=== PATIENT | male | born 1930 | race Caucasian/White ===

== ENCOUNTER 2017-07-25 20:34 | Emergency (ER) | payer MEDICARE, BC ==
[~2017-07-25] VITALS: Ht 175.3 cm; Wt 95.5 kg
[~2017-07-25 20:34] MED LIST: ASPIRIN 32325 MG/TA1 PO; BIOTIN1 MG PO; CORTEF 10MG TAB10 MG PO; CORTEF 20MG TAB20 MG PO; EPA1000 MG PO; FISH OIL 1000MG1 CAP PO; FLORINEF 00.1 MG/TAB PO; FLORINEF ACETA0.1 MG PO; HYDROCORTISONE20 MG PO; MULTIPLE VITAMI1 CAP PO; OMEPRAZOLE20 MG PO; TOPCARE ASPIRI325 MG PO; TYLENOL 650MG650 M2 PO; VITAMIN D5000 IU PO; VYTORIN 10 MG-41 TAB PO; [UNRECOGNIZED DRUG - OTHER] PO; vitorin
[2017-07-25 20:41] VITALS: TEMP 97.9
[2017-07-25] MEDS ORDERED: LIPITOR 40MG TA40 MG PO (21:29)
[2017-07-25 21:30] LABS: BASO % 0.5 % (0.0-2.0); EOS # 0.1 (0.0-0.7); EOS % 1.3 % (0-4.0); GRAN # 3.6 (1.4-6.5); GRAN % 59.3 % (42.2-75.2); HEMATOCRIT 41.1 % (42.0-52.0); HEMOGLOBIN 14.5 g/dl (13.5-18.0); LYMPH # 1.8 (1.2-3.4); LYMPH % 30.3 % (20.0-51.0); MEAN CELL VOLUME 91 fl (80.0-100.0); MEAN CORPUSCULAR HEMOGLOBIN 32 pg (27.0-31.0); MEAN CORPUSCULAR HGB CONC 35 g/dl (33.0-37.0); MEAN PLATELET VOLUME 9.6 fl (7.4-10.4); MONO # 0.5 (0.1-0.6); MONO % 8.3 % (1.7-9.3); PLATELET COUNT 269 K/mm3 (130-400)
[2017-07-25] MEDS ORDERED: BETIMOL 5 ML5 ML OS (21:32)
[2017-07-25] MEDS ORDERED: [UNRECOGNIZED DRUG - OTHER] OS (21:32)
[2017-07-25] MEDS ORDERED: BINOSTO PO (21:33)
[2017-07-25] MEDS ORDERED: FLOMAX 0.40.4 MG/CAP PO (21:33)
[2017-07-25 21:43] LABS: ADJUSTED CALCIUM 9.3 mg/dL (8.4-10.2); ALANINE AMINOTRANSFERASE 37 U/L (21-72); ALBUMIN 4.8 gm/dL (3.5-5.0); ALKALINE PHOSPHATASE 61 U/L (50-136); ANION GAP 13 mmol/L (7-16); BLOOD UREA NITROGEN 19 mg/dL (9-20); CALCIUM 9.9 mg/dL (8.4-10.2); CARBON DIOXIDE 24 mmol/L (22-30); CHLORIDE 103 mmol/L (98-107); CREATININE, serum 1.04 mg/dL (0.66-1.25); GLUCOSE 123 mg/dL (74-106); POTASSIUM 3.8 mmol/L (3.4-5.0); SODIUM 139 mmol/L (137-145); TOTAL PROTEIN 7.9 gm/dL (6.4-8.2)
[2017-07-25 21:46] LABS: PARTIAL THROMBOPLASTIN TIME 27.4 SECONDS (26.0-37.0); PROTHROMBIN TIME 11.1 SECONDS (9.7-12.8)
[2017-07-25 21:49] LABS: C-REACTIVE PROTEIN < 0.5 mg/dL (0.0-0.9)
[2017-07-25 22:13] LABS: ERYTHROCYTE SEDIMENTATION RATE 1 mm/hr (0-30)
[2017-07-25 22:49] VITALS: BP 133/73; PULSE 62
== END 2017-07-25 22:45 | disposition home or self-care (01) ==
LOC: COL.ER 20:34
PROVIDERS: Emergency Medicine
DX: G45.3 Amaurosis fugax (principal); I25.10 Atherosclerotic heart disease of native coronary artery without angina pectoris; E03.9 Hypothyroidism, unspecified; E78.5 Hyperlipidemia, unspecified; Z87.891 Personal history of nicotine dependence; Z98.41 Cataract extraction status, right eye; Z98.42 Cataract extraction status, left eye; Z79.82 Long term (current) use of aspirin

== ENCOUNTER → 2017-07-31 | Outpatient (CLI) | payer MEDICARE, BC ==
[~2017-07-31] MED LIST changes: +BETIMOL 5 ML5 ML OS; +BINOSTO PO; +FLOMAX 0.40.4 MG/CAP PO; +LIPITOR 40MG TA40 MG PO; +[UNRECOGNIZED DRUG - OTHER] OS
== END ==
LOC: COL.VAS 09:09
DX: G45.3 Amaurosis fugax (principal); I35.8 Other nonrheumatic aortic valve disorders; R07.9 Chest pain, unspecified

== ENCOUNTER 2021-09-29 10:43 | Emergency (ER) | payer MEDICARE, BC ==
[~2021-09-29] VITALS: Ht 175.3 cm; Wt 88.6 kg
[2021-09-29 11:28] LABS: BASO # 0.1 K/mm3 (0.0-0.2); BASO % 0.9 % (0.0-2.0); EOS # 0.2 K/mm3 (0.0-0.7); EOS % 2.7 % (0.0-4.0); GRAN # 3.3 K/mm3 (1.4-6.5); GRAN % 50.5 % (42.2-75.2); HEMATOCRIT 41.3 % (42.0-52.0); HEMOGLOBIN 14.3 g/dl (13.5-18.0); LYMPH # 2.5 K/mm3 (1.2-3.4); LYMPH % 37.4 % (20.0-51.0); MEAN CELL VOLUME 91 fl (80.0-100.0); MEAN CORPUSCULAR HEMOGLOBIN 32 pg (27-31); MEAN CORPUSCULAR HGB CONC 35 g/dl (33.0-37.0); MEAN PLATELET VOLUME 10.7 fl (7.4-10.4); MONO # 0.5 K/mm3 (0.1-0.6); MONO % 8.2 % (1.7-9.3); PLATELET COUNT 240 K/mm3 (130-400); RED BLOOD COUNT 4.52 M/mm3 (4.20-5.60); REDCELL DISTRIBUTION WIDTH-CV 12.5 % (11.5-14.5)
[2021-09-29 11:42] LABS: ALBUMIN 3.4 gm/dL (3.4-4.8); BILIRUBIN,TOTAL 0.6 mg/dL (0.2-1.2); CALCIUM 9.1 mg/dL (8.4-10.2); CREATININE, serum 1.04 mg/dL (0.72-1.25); POTASSIUM 3.6 mmol/L (3.5-4.5); TOTAL PROTEIN 6.6 gm/dL (6.2-8.1)
[2021-09-29] MEDS ORDERED: NORVASC 5MG5 MG/TAB PO (13:27)
[2021-09-29] MEDS ORDERED: PLAVIX 75MG TAB75 MG PO (13:27)
[2021-09-29 13:31] VITALS: BP 171/76; PULSE 54
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
== END 2021-09-29 13:40 | disposition home or self-care (01) ==
LOC: COL.ER 10:43
PROVIDERS: Personal Emergency Response Attendant
DX: I10 Essential (primary) hypertension (principal); G45.9 Transient cerebral ischemic attack, unspecified; I25.10 Atherosclerotic heart disease of native coronary artery without angina pectoris; E78.5 Hyperlipidemia, unspecified; E27.1 Primary adrenocortical insufficiency; Z95.1 Presence of aortocoronary bypass graft; Z79.82 Long term (current) use of aspirin; Z79.899 Other long term (current) drug therapy

== ENCOUNTER 2021-10-02 18:49 | Inpatient (IN) | payer MEDICARE, BC ==
[~2021-10-02] VITALS: Ht 175.3 cm; Wt 88.6 kg
[~2021-10-02 18:49] MED LIST changes: +NORVASC 5MG5 MG/TAB PO; +PLAVIX 75MG TAB75 MG PO
[2021-10-02 19:18] LABS: BASO % 0.4 % (0.0-2.0); EOS # 0.1 K/mm3 (0.0-0.7); EOS % 1.2 % (0.0-4.0); GRAN # 3.9 K/mm3 (1.4-6.5); HEMATOCRIT 44.4 % (42.0-52.0); HEMOGLOBIN 15.2 g/dl (13.5-18.0); LYMPH # 2.9 K/mm3 (1.2-3.4); LYMPH % 38.4 % (20.0-51.0); MEAN CELL VOLUME 92 fl (80.0-100.0); MEAN CORPUSCULAR HEMOGLOBIN 32 pg (27-31); MEAN CORPUSCULAR HGB CONC 34 g/dl (33.0-37.0); MEAN PLATELET VOLUME 10.4 fl (7.4-10.4); MONO # 0.6 K/mm3 (0.1-0.6); MONO % 7.7 % (1.7-9.3); PLATELET COUNT 273 K/mm3 (130-400); RED BLOOD COUNT 4.83 M/mm3 (4.20-5.60); REDCELL DISTRIBUTION WIDTH-CV 12.3 % (11.5-14.5)
[2021-10-02 19:40] LABS: ALBUMIN 3.6 gm/dL (3.4-4.8); BILIRUBIN,TOTAL 0.7 mg/dL (0.2-1.2); CALCIUM 9.4 mg/dL (8.4-10.2); CREATININE, serum 0.94 mg/dL (0.72-1.25); POTASSIUM 3.5 mmol/L (3.5-4.5); TOTAL PROTEIN 7.2 gm/dL (6.2-8.1)
[2021-10-02 19:46] LABS: TROPONIN-I 0.01 ng/mL (0.00-0.033)
[2021-10-02] MEDS ORDERED: VITAMIND3 5000 PO (20:27)
[2021-10-02] MEDS ORDERED: EPA FISH OIL1 SGL PO (20:28)
[2021-10-02] MEDS ORDERED: MELATONIN5 M1 SL (20:29)
[2021-10-02] MEDS ORDERED: ARICEPT 5MG PO (20:33)
[2021-10-02] MEDS ORDERED: DIFLUCAN200 MG PO (23:03)
[2021-10-02] MEDS ORDERED: NYSTATIN OR100 MU/ML PO (23:03)
[2021-10-02] MEDS ORDERED: ARICEPT10 MG PO (23:04)
[2021-10-02] MEDS ORDERED: ASPIRIN 32325 MG/TA1 PO (23:04)
[2021-10-02] MEDS ORDERED: CORTEF5 MG PO ×2 (23:06→23:07)
[2021-10-02] MEDS ORDERED: FLORINEF ACETA0.1 MG PO (23:07)
[2021-10-02] MEDS ORDERED: LIPITOR 40MG TA40 MG PO (23:08)
[2021-10-02] MEDS ORDERED: FOSAMAX 70MG TA70 MG PO (23:08)
[2021-10-02] MEDS ORDERED: XALATAN EYE DROPS OS (23:09)
[2021-10-02] MEDS ORDERED: PRILOSEC 20MG20 MG PO (23:09)
[2021-10-02] MEDS ORDERED: BIOTIN5000 MCG PO (23:13)
[2021-10-02] MEDS ORDERED: TYLENOL 325MG325 MG PO (23:14)
[2021-10-03] VITALS (9 sets, daily range): BP systolic 94–153; BP diastolic 47–92; PULSE 55–71; TEMP 97.3–98.5
--- NOTE | 2021-10-03 05:31 | NUR ---
PATIENT ADMITTED TO ROOM 311. PATIENT'S DAUGHTER WAS WITH HIM. PATIENT ORIENTED TO ROOM. PATIENTS DAUGHTER IS STACY AND SHE IS A BUSINESS PLANNER AT [employer]. HER SON IS A DOCTOR AT AN OUTPATIENT CLINIC AT AND HE DROVE IN FROM [place] LAST NIGHT. THE PTS GRANDDAUGHTER IS A PHYSICAL THERAPIST IN [place] AND IS ARRIVING TO OUR HOSPITAL THIS MORNING. EDUCATED FAMILY ON VISITORS POLICY AND THEY VERBALIZED UNDERSTANDING. PATIENT HAS BEEN CALM AND COOPERATIVE AND SLEEPING WELL SINCE ARRIVING TO THE FLOOR. NO NEW ISSUES NOTED BY THIS NURSE OR REPORTED BY PATIENT.
[2021-10-03 06:28] LABS: BASO % 0.4 % (0.0-2.0); EOS # 0.1 K/mm3 (0.0-0.7); EOS % 1.9 % (0.0-4.0); GRAN # 4.2 K/mm3 (1.4-6.5); GRAN % 60.7 % (42.2-75.2); HEMATOCRIT 39.6 % (42.0-52.0); HEMOGLOBIN 13.9 g/dl (13.5-18.0); LYMPH % 28.8 % (20.0-51.0); MEAN CELL VOLUME 90 fl (80.0-100.0); MEAN CORPUSCULAR HEMOGLOBIN 32 pg (27-31); MEAN CORPUSCULAR HGB CONC 35 g/dl (33.0-37.0); MEAN PLATELET VOLUME 10.4 fl (7.4-10.4); MONO # 0.5 K/mm3 (0.1-0.6); MONO % 7.9 % (1.7-9.3); PLATELET COUNT 236 K/mm3 (130-400); REDCELL DISTRIBUTION WIDTH-CV 12.3 % (11.5-14.5)
[2021-10-03 06:53] LABS: ALBUMIN 3.1 gm/dL (3.4-4.8); BILIRUBIN,TOTAL 0.7 mg/dL (0.2-1.2); CALCIUM 8.7 mg/dL (8.4-10.2); CHOLESTEROL RISK RATIO 12.8; CREATININE, serum 0.87 mg/dL (0.72-1.25); MAGNESIUM 1.8 mg/dL (1.6-2.6); PHOSPHOROUS 4.3 mg/dL (2.3-4.7); POTASSIUM 3.7 mmol/L (3.5-4.5); TOTAL PROTEIN 6.1 gm/dL (6.2-8.1)
--- NOTE | 2021-10-03 09:36 | NUR ---
PULLED PT MEDICATIONS FROM [facility]. PT HAS TWO ASPIRIN ORDERS AND CORTEX DOSES WERE DIFFERENT. CALLED PHARMACY, SPOKE TO ZAHRAA. STATES NOT TO GIVE 81MG AND GIVE 325MG ASPIRIN. THEN LOOKING FURTHER INTO MEDICATIONS ADVICED TO HOLD ALL MEDICATIONS THIS MORNING UNTIL A PHARMACIST CAN FURTHER LOOK AT THE MAR. MEDICATIONS WILL BE HELD UNTIL FURTHER NOTICE.
--- NOTE | 2021-10-03 10:14 | NUR ---
Initial visit; Patient very nice, stated that he appreciated Slab Lifting Supervisor coming in and asked that she keep him in her prayers. Slab Lifting Supervisor will do so.
--- NOTE | 2021-10-03 12:11 | NUR ---
PT OFF FLOOR TO MRI
--- NOTE | 2021-10-03 12:43 | NUR ---
Psychology Instructor and SW student attended clinical rounds and then met with patient to discuss discharge planning. Patient's son, Mauricio Osuna is at bedside. Patient lives in [facility] apartments with his , Miriam (ph#[phone]) and sees Dr. Polanco for primary care. Patient does not use any DME and reports independence with [facility]LS. Patient states they currently have no help in the home, but are considering it for Miriam. Patient has Advance Directives in EMR which designate Miriam as primary agent then his children Ying and Mauricio Cohn. Patient states he plans to return to [facility] at time of discharge. Ene with PT advised she is recommending outpatient PT for patient and that he is appropriate to return to [place]. RON contacted Irene at [facility] and faxed updates. Discharge Plan: [facility].
--- NOTE | 2021-10-03 13:03 | NUR ---
PT BACK TO FLOOR FROM MRI
--- NOTE | 2021-10-03 13:30 | NUR ---
PT UP IN BED EATING LUNCH. FAMILY STATES THAT PT WAS HAVING NUMBNESS IN LEFT ARM. PT STARTED TO SLUR SPEECH. WAS UNABLE TO LIFT ARM OR LEGS. PINKY WAS AT NURSING STATION, CALLED HER IN TO SEE PT. SHE CALLED DR. MONROE IN. STROKE TEAM WAS CONSULTED AND STAT HEAD CT WAS ORDERED.
--- NOTE | 2021-10-03 14:45 | NUR ---
TRANSPORTED PT TO CT VIA BED FOR STAT CT. THEN OT RETURNED TO ROOM. CALL LIGHT IS WITHIN REACH.
--- NOTE | 2021-10-03 17:30 | NUR ---
SPEECH THERAPY ASSESSMENT IS COMPLETE STATES THAT HE DOES VERY WELL AND CAN HAVE A REGULAR DIET. ORDER FOR REGULAR DIET WAS PUT IN. KITCHEN WAS CALLED TO GET DINNER TRAY.
--- NOTE | 2021-10-03 19:28 | NUR ---
PT LAYING IN BED WITH FAMILY AT BEDSIDE. PT STATES THAT HE IS NOT HAVING ANY PAIN AT THE MOMENT. STATES THAT HE IS JUST "WAITING FOR HIS MRI." NO OTHER NEEDS AT THIS TIME. CALL LIGHT IS WITHIN REACH.
--- NOTE | 2021-10-03 23:39 | NUR ---
Call placed to Mirta MENDOZA re: telemetry running multifocal PACs, couplets and triplets- NON: EKG, draw all am labs now, Potassium level, Magnesium level, patient is resting quietly w/o s/s of distress.
[2021-10-03 23:58] LABS: BASO # 0.1 K/mm3 (0.0-0.2); BASO % 0.7 % (0.0-2.0); EOS # 0.1 K/mm3 (0.0-0.7); EOS % 1.2 % (0.0-4.0); GRAN # 4.3 K/mm3 (1.4-6.5); GRAN % 63.3 % (42.2-75.2); HEMATOCRIT 38.7 % (42.0-52.0); HEMOGLOBIN 13.4 g/dl (13.5-18.0); LYMPH # 1.7 K/mm3 (1.2-3.4); LYMPH % 25.3 % (20.0-51.0); MEAN CELL VOLUME 90 fl (80.0-100.0); MEAN CORPUSCULAR HEMOGLOBIN 31 pg (27-31); MEAN CORPUSCULAR HGB CONC 35 g/dl (33.0-37.0); MONO # 0.6 K/mm3 (0.1-0.6); MONO % 9.2 % (1.7-9.3); PLATELET COUNT 234 K/mm3 (130-400); RED BLOOD COUNT 4.28 M/mm3 (4.20-5.60); REDCELL DISTRIBUTION WIDTH-CV 12.5 % (11.5-14.5)
[2021-10-04 00:15] LABS: CALCIUM 8.7 mg/dL (8.4-10.2); CREATININE, serum 0.97 mg/dL (0.72-1.25); MAGNESIUM 1.8 mg/dL (1.6-2.6); POTASSIUM 3.7 mmol/L (3.5-4.5)
--- NOTE | 2021-10-04 01:36 | NUR ---
Updated patient on lab results, EKG results and new orders for medications, verbalized understanding, denies feeling bad, VS stable, will continue to monitor.
[2021-10-04 03:17] VITALS: BP 117/69; PULSE 65; TEMP 98.2
[2021-10-04 06:43] LABS: CALCIUM 8.7 mg/dL (8.4-10.2); CREATININE, serum 0.87 mg/dL (0.72-1.25); MAGNESIUM 2.4 mg/dL (1.6-2.6); POTASSIUM 4.2 mmol/L (3.5-4.5)
[2021-10-04 08:08] VITALS: BP 127/45; PULSE 59; TEMP 98.2
[2021-10-04] MEDS ORDERED: PLAVIX 75MG TAB75 MG PO (09:40)
[2021-10-04] MEDS ORDERED: ASPIRIN 81M81 MG/TA2 PO (09:41)
[2021-10-04] MEDS ORDERED: CRESTOR40 MG PO (09:51)
--- NOTE | 2021-10-04 10:25 | NUR ---
PT SITTING UP IN BED. READY TO EAT BREAKFAST. PT STATES THAT HE IS NOT HAVING ANY PAIN AT THIS TIME. PT STATES THAT HE IS NOT HAVING ANY WEAKNESS/NUMBNESS IN HIS LEFT SIDE AT THIS TIME. PT STATES THAT HE DOES NOT NEED ANYTHING AT THIS TIME. CALL LIGHT IS PLACED WITHIN REACH.
[2021-10-04 12:17] VITALS: BP 120/50; PULSE 65; TEMP 98.1
--- NOTE | 2021-10-04 14:30 | NUR ---
Literary Agent was notified that patient is set to [facility] to [facility] today and is interested in Home Health. RON met with patient and his daughter, Ying who would like to use [facility]. RON contacted Maria Teresa at [facility] and faxed referral/discharge orders. Maria Teresa advised they will plan to accept patient. Discharge Plan: [facility] with [facility]
== END 2021-10-04 14:15 | disposition home health service (06) | DRG 41 ==
LOC: COL.ER 18:49 → MEDICAL 20:33
PROVIDERS: Emergency Medicine; Nurse Practitioner Family; Physician Assistant; ADMIT Internal Medicine
PROC: 0JH602Z Insertion of Monitoring Device into Chest Subcutaneous Tissue and Fascia, Open Approach (ICD-10-PCS; principal; 2021-10-04)
DX: I63.9 Cerebral infarction, unspecified (principal); E27.1 Primary adrenocortical insufficiency; B37.0 Candidal stomatitis; E87.2 Acidosis; G81.94 Hemiplegia, unspecified affecting left nondominant side; R29.810 Facial weakness; I25.10 Atherosclerotic heart disease of native coronary artery without angina pectoris; E78.5 Hyperlipidemia, unspecified; E87.6 Hypokalemia; I65.29 Occlusion and stenosis of unspecified carotid artery; R20.2 Paresthesia of skin; I35.0 Nonrheumatic aortic (valve) stenosis; I45.10 Unspecified right bundle-branch block; R29.701 NIHSS score 1; I48.91 Unspecified atrial fibrillation; I65.09 Occlusion and stenosis of unspecified vertebral artery; Z20.822 Contact with and (suspected) exposure to COVID-19; Z95.1 Presence of aortocoronary bypass graft; Z79.82 Long term (current) use of aspirin; Z23 Encounter for immunization
CPT/HCPCS: 99239; A9585; C1764; G0378; J3475; J3480; J7030; Q9967

== ENCOUNTER → 2021-10-26 | Outpatient (CLI) | payer MEDICARE, BC ==
[~2021-10-26] MED LIST changes: +ARICEPT 5MG PO; +ARICEPT10 MG PO; +ASPIRIN 81M81 MG/TA2 PO; +BIOTIN5000 MCG PO; +CORTEF5 MG PO; +CRESTOR40 MG PO; +DIFLUCAN200 MG PO; +EPA FISH OIL1 SGL PO; +FOSAMAX 70MG TA70 MG PO; +MELATONIN5 M1 SL; +NYSTATIN OR100 MU/ML PO; +PRILOSEC 20MG20 MG PO; +TYLENOL 325MG325 MG PO; +VITAMIND3 5000 PO; +XALATAN EYE DROPS OS
[2021-10-26 16:15] LABS: BASO # 0.1 K/mm3 (0.0-0.2); BASO % 0.5 % (0.0-2.0); EOS # 0.1 K/mm3 (0.0-0.7); EOS % 0.8 % (0.0-4.0); GRAN # 8.5 K/mm3 (1.4-6.5); GRAN % 69.2 % (42.2-75.2); HEMATOCRIT 42.2 % (42.0-52.0); HEMOGLOBIN 15.2 g/dl (13.5-18.0); LYMPH # 2.8 K/mm3 (1.2-3.4); LYMPH % 22.7 % (20.0-51.0); MEAN CELL VOLUME 88 fl (80.0-100.0); MEAN CORPUSCULAR HEMOGLOBIN 32 pg (27-31); MEAN CORPUSCULAR HGB CONC 36 g/dl (33.0-37.0); MEAN PLATELET VOLUME 10.7 fl (7.4-10.4); MONO # 0.8 K/mm3 (0.1-0.6); MONO % 6.1 % (1.7-9.3); PLATELET COUNT 279 K/mm3 (130-400); RED BLOOD COUNT 4.81 M/mm3 (4.20-5.60); REDCELL DISTRIBUTION WIDTH-CV 12.5 % (11.5-14.5)
[2021-10-26 16:25] LABS: ALBUMIN 3.7 gm/dL (3.4-4.8); BILIRUBIN,TOTAL 0.7 mg/dL (0.2-1.2); C-REACTIVE PROTEIN 1.73 mg/dL (0.00-0.50); CALCIUM 9.6 mg/dL (8.4-10.2); CREATININE, serum 1.48 mg/dL (0.72-1.25); POTASSIUM 3.3 mmol/L (3.5-4.5); TOTAL PROTEIN 6.9 gm/dL (6.2-8.1)
[2021-10-26 16:36] LABS: ERYTHROCYTE SEDIMENTATION RATE 12 mm/hr (0-30)
== END ==
LOC: ZCOL.LAB 15:40
PROVIDERS: Internal Medicine
DX: R63.4 Abnormal weight loss (principal); R11.0 Nausea